=== PATIENT | female | born 1990 | race Caucasian/White ===

== ENCOUNTER 2021-09-11 16:19 | Inpatient (IN) | payer BC ==
[~2021-09-11 16:19] MED LIST: Bupivacaine 0.25% 10 ML SDV ONE; Phenylephrine/Normal Saline 100 MCG/ML 10 ML Syringe ONE
[2021-09-11] MEDS ORDERED: Nalbuphine 10 MG/1 ML Vial IVPUSH PRN (17:34)
[2021-09-11] MEDS ORDERED: Ondansetron 4 MG/2 ML SDV IVPUSH PRN (17:34)
[2021-09-11] MEDS ORDERED: Sodium Chloride 0.9% 10 ML Syringe FLUSH PRN (17:34)
[2021-09-11] MEDS ORDERED: Lactated Ringers 1,000 ML IV SCH (17:45)
[2021-09-11] MEDS ORDERED: Oxytocin/Lactated Ringers 10 UNIT/1,000 ML BAG IV SCH ×2 (17:45)
[2021-09-11] MEDS ORDERED: ePHEDrine 50 MG/ML SDV IVPUSH PRN (17:53)
[2021-09-11] MEDS ORDERED: diphenhydrAMINE 50 MG/ML SDV IVPUSH PRN (17:53)
[2021-09-11] MEDS ORDERED: fentaNYL 100 MCG/2 ML SDV EPIDUR PRN (17:53)
[2021-09-11] MEDS ORDERED: Bupivacaine/fentaNYL/NS 100 ML Bag EPIDUR PRN (17:53)
[2021-09-11] MEDS ORDERED: Phenylephrine/Normal Saline 100 MCG/ML 10 ML Syringe IVPUSH ONE (19:04)
[2021-09-11] MEDS ORDERED: Sodium Chloride 0.9% 10 ML Syringe FLUSH SCH (21:00)
[2021-09-11] MEDS ORDERED: Docusate Sodium 100 MG Cap PO PRN (21:44)
[2021-09-11] MEDS ORDERED: Acetaminophen 325 MG Tab PO PRN (21:44)
[2021-09-11] MEDS ORDERED: Benzocaine/Menthol 20%-0.5% Spray 78 GM Cannister TOP PRN (21:44)
[2021-09-11] MEDS ORDERED: Witch Hazel Medicated Pads 40/Jar TOP PRN (21:44)
[2021-09-12] MEDS: Ibuprofen 600 MG Tab PO PRN ×3 (09:13→20:07)
[2021-09-12 21:38] VITALS: BP 113/69; PULSE 82
== END 2021-09-12 21:35 | disposition home or self-care (01) | DRG 560 ==
LOC: JD.OB 16:19 → JD.OBCHECK 16:19 → JD.OB 17:55 → OBSVTOIN 20:57 → JD.OB 20:58
PROVIDERS: ADMIT Obstetrics & Gynecology; ATTEND Obstetrics & Gynecology
PROC: 10E0XZZ Delivery of Products of Conception, External Approach (ICD-10-PCS; principal; 2021-09-11)
PROC: 10907ZC Drainage of Amniotic Fluid, Therapeutic from Products of Conception, Via Natural or Artificial Opening (ICD-10-PCS; 2021-09-11)
PROC: 3E0R3BZ Introduction of Anesthetic Agent into Spinal Canal, Percutaneous Approach (ICD-10-PCS; 2021-09-11)
DX: O26.893 Other specified pregnancy related conditions, third trimester (principal); Z88.1 Allergy status to other antibiotic agents; Z3A.39 39 weeks gestation of pregnancy; Z37.0 Single live birth; Z88.8 Allergy status to other drugs, medicaments and biological substances; Z87.440 Personal history of urinary (tract) infections; Z67.11 Type A blood, Rh negative
CPT/HCPCS: 36415; 51702; 59025; 59409; 85027; 85461; 86592; 86850; 86870; 86900; 86901; A9270-GY; J2370; J2405; J2790; J3010; J3490; J7120